=== PATIENT | male | born 1955 | race Caucasian/White ===

== ENCOUNTER 2016-08-07 10:30 | Day surgery (SDC) | payer BC ==
[2016-07-31 11:36] LABS: HEMATOCRIT 45.2 % (37.9-51.0); HEMOGLOBIN 14.6 g/dL (13.5-17.0); HGB HCT DIFFERENCE -1.4; MEAN CORPUSCULAR HEMOGLOBIN 28.8 pg (27.0-33.4); MEAN CORPUSCULAR HGB CONC 32.4 g/dL (32.0-36.0); MEAN CORPUSCULAR VOLUME 89 fl (80-97); RED BLOOD COUNT 5.08 10^6/uL (4.35-5.55); RED CELL DISTRIBUTION WIDTH 14.5 % (11.5-14.0); WHITE BLOOD COUNT 10.7 10^3/uL (4.0-10.5)
[2016-07-31 11:45] LABS: PROTHROMBIN TIME 12.2 SEC (11.4-15.4)
[2016-07-31 11:46] LABS: PARTIAL THROMBOPLASTIN TIME 27.7 SEC (23.5-35.8)
[2016-07-31 12:00] LABS: ANION GAP 11 (5-19); BLOOD UREA NITROGEN 19 mg/dL (7-20); CALCIUM 9.9 mg/dL (8.4-10.2); CARBON DIOXIDE 28 mmol/L (22-30); CHLORIDE 103 mmol/L (98-107); CREATININE RESULT 1.22 mg/dL (0.52-1.25); GLUCOSE 78 mg/dL (75-110); SODIUM 142.4 mmol/L (137-145)
--- NOTE | 2016-07-31 16:24 | EKG REPORT ---
SEVERITY:- NORMAL ECG - SINUS RHYTHM : Confirmed by: Xiang Vega MD 31-Jul-2016 16:23:55
[~2016-08-07 10:30] MED LIST: CEFAZOLIN SODIUM 1 GM in DEXTROSE 5%-WATER 50 ML IV PRN; LACTATED RINGERS 1000 ML IV PRN; LIDOCAINE 0.5% INJ-PF (5 MG/ML) 50 ML SDV SUBCUT PRN; LIDOCAINE 1%/EPINEPHRINE INJ 20 ML VIAL ONE
[2016-08-07] MEDS ORDERED: DEXMEDETOMIDINE INJ 80 MCG/20 ML VIAL IV ONE (11:55)
[2016-08-07] MEDS ORDERED: PROPOFOL INJ 200 MG/20 ML VIAL IV ONE (11:55)
[2016-08-07] MEDS ORDERED: ONDANSETRON HCL INJ/PF 4 MG/2 ML SDV ONE (11:55)
[2016-08-07] MEDS ORDERED: FENTANYL CITRATE INJ/PF 100 MCG/2 ML AMPUL ONE (11:55)
[2016-08-07] MEDS ORDERED: POVIDONE-IODINE 5% OPH PREP SOLN 30 ML ONE (11:56)
[2016-08-07] MEDS ORDERED: MIDAZOLAM 2 MG/2 ML INJ ONE (11:56)
[2016-08-07] MEDS: SODIUM BICARBONATE 8.4% INJ 50 MEQ/50 ML DISP.SYRIN ONE ×2 (13:10→13:23)
[2016-08-07] MEDS ORDERED: MORPHINE SULFATE 10 MG/ML INJ IV PRN (13:29)
[2016-08-07] MEDS ORDERED: PROMETHAZINE HCL INJ 25 MG/1 ML VIAL IV PRN ×2 (13:29)
[2016-08-07] MEDS ORDERED: DIPHENHYDRAMINE HCL 50 MG/ML VIAL IV PRN (13:29)
[2016-08-07] MEDS ORDERED: MEPERIDINE HCL/PF INJ 25 MG/1 ML DISP.SYRIN IV PRN (13:29)
[2016-08-07] MEDS ORDERED: FENTANYL CITRATE INJ/PF 100 MCG/2 ML AMPUL IV PRN ×3 (13:29)
--- NOTE | 2016-08-07 14:01 | Operative Report ---
Operative Report DATE OF SURGERY: 08/07/16 PREOPERATIVE DIAGNOSIS: Biopsy-proven basal cell carcinoma of the left cheek POSTOPERATIVE DIAGNOSIS: Same OPERATION: Excision of basal cell carcinoma of the left cheek with frozen section margin control and reconstruction with a O to S Plasty flap reconstruction SURGEON: VICTORINO RODRIGUEZ ANESTHESIA: LMAC TISSUE REMOVED OR ALTERED: Basal cell carcinoma of the left cheek COMPLICATIONS: None ESTIMATED BLOOD LOSS: minimal PROCEDURE: Patient seen and was marked prior to being brought into the operating room. Patient was brought into the operating room and placed on the operating room table in a supine position. Patient was then prepped with a Betadine scrub and Betadine solution and draped in a sterile and aseptic manner. The area was then marked. 12 O'clock was marked towards the upper cheek 3 O'clock was marked towards earlobe 6:00 was marked towards the middle finger 9:00 was marked towards the mouth The area was then anesthetized with 1% lidocaine with epinephrine and bicarbonate for its anesthetic and hemostatic effects. The area was then excised and marked at 12:00. We had considered a primary closure but this would go against the natural relaxed skin tension lines. A primary closure would be too tight and would have increased chance of dehiscence. This will leave more of a scar so we decided to use a O to S flap reconstruction which would camouflage the scar better and take tension off of the closure so that would be less chances of complications. Then went ahead and outlined the flap and anesthetized it. Then incised the flap and developed a flap maintaining the subdermal plexus. Then we undermined 360 to allow for plate like scarring and minimize trap door deformity. Throughout the case hemostasis was achieved with the bipolar. We then sutured the flap into its new position Using 5-0 Vicryl for the subcutaneous and deep dermis. Skin was closed with a subcuticular stitch using 4-0 PDS with knots being tied on the outside. And 4-0 PDS suture was used for support and placed in the central area of the incision. We then applied tincture benzoin and Steri-Strips followed by a light pressure dressing. Patient was then reversed from anesthesia and taken to the [facility] for recovery. The patient tolerated well. There were no complications. Lesion size was possible 1 cm please see pathology for actual size. Portions of this note may be dictated using [employer] voice recognition software. Occasional variations and spelling and vocabulary could be possible and are unintentional. Additionally, there is a chance that some errors may not be caught or corrected. Please notify the offer of any discrepancies noted or if any statements are unclear. Provider Note Provider Note: Subjective: No complaints Objective: Vital signs stable afebrile No bleeding Dressing intact Assessment and plan: Doing well. Elevate the operative site. Resume medications. Take antibiotics for 1 day Follow-up Full instructions were given to the patient and family and they understand Portions of this note may be dictated using [employer] voice recognition software. Occasional variations and spelling and vocabulary could be possible and are unintentional. Additionally, there is a chance that some errors may not be caught or corrected. Please notify the offer of any discrepancies noted or if any statements are unclear.
--- NOTE | 2016-08-07 14:04 | PDOC DISCHARGE SUMMARY ---
Discharge Summary (SDC) - Discharge Final Diagnosis: Basal cell carcinoma of the left cheek Date of Surgery: 08/07/16 Condition: Good Treatment or Instructions: Leave the top dressing on for 2 days, then removed. Leave the steri-strip tapes on for 5 days, then removal. Then cleaning wound with peroxide and apply Neosporin/bacitracin 3 times per day. Antibiotics for 1 day, then discontinue. Elevate operative area to decrease swelling. Do not strain, or lift heavy objects. Call for excessive bleeding, increased temperature of 101, uncontrolled pain, or excessive nausea or vomiting. You may reach Dr. Courtney through his office at [phone]. In the event of an emergency after hours, then contact Dr. Courtney through [facility]. Return to the office for a postop check on . The time will be scheduled by the nursing staff of [facility] prior to discharge. Please give the patient a copy of their labs and EKG so they can bring this to their PMD. Thank you Portions of this note may be dictated using [employer] voice recognition software. Occasional variations and spelling and vocabulary could be possible and are unintentional. Additionally, there is a chance that some errors may not be caught or corrected. Please notify the offer of any discrepancies noted or if any statements are unclear. Discharge Diet: As Tolerated Discharge Activity: Activity As Tolerated Report the Following to Your Physician Immediately: Shortness of Breath, Nausea , Vomiting, Increase in Pain - Discharge to home
[2016-08-07 15:46] VITALS: BP 130/84
== END 2016-08-07 15:45 | disposition home or self-care (01) ==
LOC: OROUT 10:30
PROVIDERS: ATTEND Plastic Surgery
PROC: 0HB1XZX Excision of Face Skin, External Approach, Diagnostic (ICD-10-PCS; 2016-08-07)
PROC: 0HX1XZZ Transfer Face Skin, External Approach (ICD-10-PCS; principal; 2016-08-07 12:30)
DX: C44.319 Basal cell carcinoma of skin of other parts of face (principal); Z79.82 Long term (current) use of aspirin; Z79.899 Other long term (current) drug therapy; I10 Essential (primary) hypertension; M19.90 Unspecified osteoarthritis, unspecified site; M10.9 Gout, unspecified
CPT/HCPCS: 93005; 36415; 85027; 85610; 85730; 80048; 88305 ×2; 88312 ×2; 88331 ×2; 93010; 14040; J2250; J0690; J3010; J3490 ×4; J2405; J2704; 300

== ENCOUNTER → 2017-06-03 | Outpatient (CLI) | payer BC ==
--- NOTE | 2017-06-03 11:59 | RADIOLOGY REPORT (SQ) ---
EXAM DESCRIPTION: KUB COMPLETED DATE/TIME: 06/03/2017 11:01 am REASON FOR STUDY: CALCULUS OF KIDNEY N20.0 CALCULUS OF KIDNEY COMPARISON: 05/07/2016 NUMBER OF VIEWS: One view. TECHNIQUE: Supine radiographic image of the abdomen acquired. LIMITATIONS: None. FINDINGS: BOWEL GAS PATTERN: Normal bowel gas pattern. No dilated loops. CALCIFICATIONS: Bilateral intrarenal calcifications are present. No ureteral calculus is seen. SOFT TISSUES: No gross mass or suggestion of organomegaly. HARDWARE: None in the abdomen. BONES: No acute fracture. No worrisome bone lesions. OTHER: No other significant finding. IMPRESSION: Bilateral nephrolithiasis with no evidence of a ureteral stone. TECHNICAL DOCUMENTATION: JOB ID: [id number] [employer]- All Rights Reserved
== END ==
LOC: OD 10:46
PROVIDERS: ATTEND Urology
DX: N20.0 Calculus of kidney (principal)
CPT/HCPCS: 74000

== ENCOUNTER 2018-03-30 13:26 | Emergency (ER) | payer BC ==
--- NOTE | 2018-03-30 14:57 | ER Document Report ---
ED Head/Face/Scalp Injury - General Chief Complaint: Laceration Stated Complaint: HEAD INJURY Time Seen by Provider: 03/30/18 14:11 Notes: 62-year-old male presents to ED for laceration to the top of his head. He states he was taken down some broken branches when he came down and hit him on the head. He does have a small laceration 1.75 mL long. TRAVEL OUTSIDE OF THE [place] IN LAST 30 DAYS: No - HPI Patient complains to provider of: Laceration Injury to: Head Location of problem: Head Occurred: Just prior to arrival Where: Home, Outdoors Timing: Still present Context: Laceration Loss consciousness: No loss of consciousness Remembers: Injury, Coming to hospital - Related Data Allergies/Adverse Reactions: No Known Allergies Allergy (Verified 07/30/16 10:05) Past Medical History - General Information source: Patient - Social History Smoking Status: Never Smoker Cigarette use (# per day): No Chew tobacco use (# tins/day): No Smoking Education Provided: No Frequency of alcohol use: None Drug Abuse: None 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 Lives with: Family Family History: Reviewed & Not Pertinent Patient has suicidal ideation: No Patient has homicidal ideation: No Pulmonary Medical History: Reports: Hx Pneumonia - age 42 EENT Medical History: Reports: None Neurological Medical History: Reports: None Endocrine Medical History: Reports: None Renal/ Medical History: Reports: None Malignancy Medical History: Reports None GI Medical History: Reports: None Musculoskeletal Medical History: Reports Hx Arthritis - hands, Reports Hx Musculoskeletal Deformity, Reports Hx Musculoskeletal Trauma Skin Medical History: Reports None Psychiatric Medical History: Reports: None Traumatic Medical History: Reports: Hx Fractures - Multiple states he does not remember the mall Infectious Medical History: Reports: None Past Surgical History: Reports: Hx Orthopedic Surgery - Left knee surgery then total knee replacement., Hx Tonsillectomy - Immunizations Hx Diphtheria, Pertussis, Tetanus Vaccination: Yes Review of Systems - Review of Systems Constitutional: No symptoms reported EENT: No symptoms reported Cardiovascular: No symptoms reported Respiratory: No symptoms reported Gastrointestinal: No symptoms reported Genitourinary: No symptoms reported Male Genitourinary: No symptoms reported Musculoskeletal: No symptoms reported Skin: Other - Laceration to the scalp Hematologic/Lymphatic: No symptoms reported Neurological/Psychological: No symptoms reported Physical Exam - Vital signs Vitals: Temp Pulse Resp BP Pulse Ox 98.1 F 77 14 151/90 H 96 03/30/18 13:32 03/30/18 13:32 03/30/18 13:32 03/30/18 13:32 03/30/18 13:32 Interpretation: Hypertensive - States he has white coat hypertension - General General appearance: Appears well, Alert - HEENT Head: Open wounds - Laceration to the scalp 1.75 cm, Tenderness Eyes: Normal Pupils: PERRL Ears: Normal External canal: Normal Tympanic membrane: Normal Sinus: Normal Nasal: Normal Mouth/Lips: Normal Mucous membranes: Normal Pharynx: Normal Neck: Normal - Respiratory Respiratory status: No respiratory distress Chest status: Nontender Breath sounds: Normal Chest palpation: Normal - Cardiovascular Rhythm: Regular Heart sounds: Normal auscultation Murmur: No - Abdominal Inspection: Normal Distension: No distension Bowel sounds: Normal Tenderness: Nontender Organomegaly: No organomegaly - Back Back: Normal, Nontender - Extremities General upper extremity: Normal inspection, Nontender, Normal color, Normal ROM , Normal temperature General lower extremity: Normal inspection, Nontender, Normal color, Normal ROM , Normal temperature, Normal weight bearing. 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 Patient tolerated procedure well. Patient was given instructions for care of stapled wound. Patient verbalized understanding of instructions. Patient was discharged home. - Vital Signs Vital signs: Temp Pulse Resp BP Pulse Ox 98.4 F 60 20 150/87 H 95 03/30/18 15:00 03/30/18 15:00 03/30/18 15:00 03/30/18 15:00 03/30/18 15:00 Procedures - Laceration/Wound Repair Top of the head scalp Time completed: 15:00 Wound length (cm): 1.7 Wound's Depth, Shape: Superficial Laceration pre-procedure: Sterile PPE donned, Shur-Clens applied Volume Anesthetic (mLs): 0 Wound explored: Contaminated Irrigated w/ Saline (mLs): 75 Wound Repaired With: [place] Number of Sutures: 3 Layer Closure?: No Post-procedure NV exam normal: Yes Complications: No Discharge - Discharge Clinical Impression: Scalp laceration Qualifiers: Encounter type: initial encounter Qualified Code(s): S01.01XA - Laceration without foreign body of scalp, initial encounter Condition: Stable Disposition: HOME, SELF-CARE Additional Instructions: Scalp Laceration A scalp laceration requires little care. Dressings are applied only if severe bleeding or a large flap are present. Usually, once the cut is sutured, you can ignore it. Simply comb the hair over top of it to hide the stitches and go about your usual routine. You can shampoo your hair as needed starting tomorrow. If you need to wear a special hat or protective helmet for work, be careful that it doesn't press on the area. If crusting is bothersome, you can soften the crusts with Polysporin ointment, then shampoo. Infection in a scalp laceration is rare. If any signs of infection occur ( swelling, redness, increasing tenderness, red streaks, tender lumps in the neck on the side of the laceration, or fever), see the doctor immediately. Care of Stapled Wounds Your laceration has been stapled to keep the skin edges aligned during healing. The time of staple removal depends on the nature and location of your cut. Please follow the care instructions the doctor has outlined for you and return for further care, according to the schedule you've been given. A special instrument is needed to remove bianka without injuring your skin further, so don't try to take the bianka out yourself. Keep the wound and dressing clean. Unless you were told otherwise, you may shower daily, blotting the wound dry with a clean, unused towel. At other times, If the dressing gets wet or blood soaked, remove it and blot the wound dry, then reapply a new dressing. Unless you were instructed otherwise, dressings should be changed at least daily. If any signs of infection occur (swelling, redness, increasing tenderness, red streaks, tender lumps in the armpit or groin above the laceration, or fever) , see the doctor immediately. Soap Cleansing Gently wash the wound daily using a mild soap (like Ivory, Phisoderm, Neutrogena). Use warm water, rubbing gently until all debris, ooze, and crusting have been washed from the wound. Allow to dry briefly (about 10 minutes) after cleaning. Repeat this cleansing at least three times a day for the first two days and then once or twice a day. ANTIBIOTIC OINTMENT PROTECTION: Your wounds are such that dressing them is not practical or optional. After cleansing, you should apply a thin coating of antibiotic ointment ( Bacitracin, not Neosporin) to the wounds at least three times daily. This lessens infection risk, and may decrease the amount of scarring. Use a q-tip or dull butter knife, not your finger, to apply this ointment. Any debris or ooze which builds up in the ointment should be gently rubbed off with a sterile gauze pad. Harder crusting may need to be gently scrubbed off with a clean wash cloth with soap and warm water, perhaps applying a warm, wet wash cloth to the wound for ten minutes first. Development of redness, severe itching, or blistering may mean allergy to the ointment. See the doctor. FOLLOW-UP CARE: Please see your primary doctor in __3___ days for an infection check and dressing change. Your bianka should be removed in __5___ days. To facilitate a timely removal of your bianka, you may return to the Emergency Department at [facility]. You do not need to call for an appointment, but the best time to come in for suture removal is early in the morning. If you have been referred to another physician for follow-up care, call that physicians office for an appointment as you were instructed. If you experience a significant change in your laceration, or if you are concerned there may be an infection (swelling, redness, drainage, increasing tenderness, red streaks, tender lumps in the armpit or groin above the laceration, or fever) , return to the Emergency Department immediately re-evaluation. Forms: Elevated Blood Pressure Referrals: KIRK ROSS MD [Primary Care Provider] - Follow up as needed
[2018-03-30 15:46] VITALS: BP 150/87
== END 2018-03-30 15:47 | disposition home or self-care (01) ==
LOC: ER 13:26
PROC: 0HQ0XZZ Repair Scalp Skin, External Approach (ICD-10-PCS; principal; 2018-03-30)
DX: S01.01XA Laceration without foreign body of scalp, initial encounter (principal); X37.0XXA Hurricane, initial encounter; Y93.H9 Activity, other involving exterior property and land maintenance, building and construction; Y92.007 Garden or yard of unspecified non-institutional (private) residence as the place of occurrence of the external cause
CPT/HCPCS: 99282

== ENCOUNTER → 2018-04-18 | Outpatient (CLI) | payer BC ==
[2018-04-18 12:55] LABS: ABSOLUTE BASOPHILS # (AUTO) 0.1 10^3/uL (0.0-0.2); ABSOLUTE EOSINOPHILS # (AUTO) 0.1 10^3/uL (0.0-0.6); ABSOLUTE LYMPHOCYTES (AUTO) 2.9 10^3/uL (0.5-4.7); ABSOLUTE MONOCYTES (AUTO) 0.9 10^3/uL (0.1-1.4); ABSOLUTE NEUT (AUTO) 3.7 10^3/uL (1.7-8.2); EOSINOPHILS % (AUTO) 1.9 % (0-6); HEMATOCRIT 42.4 % (37.9-51.0); HEMOGLOBIN 14.5 g/dL (13.5-17.0); LYMPHOCYTES % (AUTO) 37.7 % (13-45); MEAN CORPUSCULAR HEMOGLOBIN 30.6 pg (27.0-33.4); MEAN CORPUSCULAR HGB CONC 34.3 g/dL (32.0-36.0); MEAN CORPUSCULAR VOLUME 89 fl (80-97); MONOCYTES % (AUTO) 11.7 % (3-13); PLATELET COUNT 249 10^3/uL (150-450); RED BLOOD COUNT 4.75 10^6/uL (4.35-5.55); RED CELL DISTRIBUTION WIDTH 13.7 % (11.5-14.0); SEGMENTED NEUTROPHILS % (AUTO) 47.7 % (42-78); TOTAL CELLS COUNTED % (AUTO) 100 %; WHITE BLOOD COUNT 7.7 10^3/uL (4.0-10.5)
[2018-04-18 12:57] LABS: APPEARANCE,URINE CLEAR; BILIRUBIN,URINE NEGATIVE (NEGATIVE); COLOR,URINE STRAW; GLUCOSE, URINE NEGATIVE (NEGATIVE); KETONES,URINE NEGATIVE (NEGATIVE); LEUKOCYTE ESTERASE,URINE NEGATIVE (NEGATIVE); NITRITE,URINE NEGATIVE (NEGATIVE); PROTEIN,URINE NEGATIVE (NEGATIVE); URINE SPECIFIC GRAVITY 1.003; UROBILINOGEN,URINE NEGATIVE mg/dL (<2.0)
[2018-04-18 13:14] LABS: ALANINE AMINOTRANSFERASE 40 U/L (21-72); ALBUMIN 4.2 g/dL (3.5-5.0); ALKALINE PHOSPHATASE 69 U/L (38-126); ANION GAP 12 (5-19); ASPARTATE AMINO TRANSFERASE 36 U/L (17-59); BILIRUBIN,DIRECT 0.5 mg/dL (0.0-0.4); BILIRUBIN,TOTAL 1.7 mg/dL (0.2-1.3); BLOOD UREA NITROGEN 17 mg/dL (7-20); CALCIUM 9.7 mg/dL (8.4-10.2); CARBON DIOXIDE 26 mmol/L (22-30); CHLORIDE 101 mmol/L (98-107); CHOLESTEROL 150.09 mg/dL (0-200); GLUCOSE 87 mg/dL (75-110); POTASSIUM 4.6 mmol/L (3.6-5.0); SODIUM 138.7 mmol/L (137-145); TOTAL PROTEIN 6.8 g/dL (6.3-8.2); TRIGLYCERIDES 128 mg/dL (<150); URIC ACID 5.6 mg/dL (3.5-8.5)
[2018-04-18 13:29] LABS: DIRECT LDL 76 mg/dL (<100)
== END ==
LOC: OD 12:12
PROVIDERS: ATTEND Internal Medicine Nephrology
DX: E78.5 Hyperlipidemia, unspecified (principal); E78.1 Pure hyperglyceridemia; M10.9 Gout, unspecified; N28.9 Disorder of kidney and ureter, unspecified
CPT/HCPCS: 36415; 80053; 80061; 81001; 84153; 84550; 85025

== ENCOUNTER 2018-05-13 05:46 | Day surgery (SDC) | payer BC ==
[~2018-05-13 05:46] MED LIST changes: +CEFAZOLIN 1 GM/D5W RTU 1 GM/50 ML RTUPB IV PRN; -CEFAZOLIN SODIUM 1 GM in DEXTROSE 5%-WATER 50 ML IV PRN; -LACTATED RINGERS 1000 ML IV PRN; -LIDOCAINE 0.5% INJ-PF (5 MG/ML) 50 ML SDV SUBCUT PRN; -LIDOCAINE 1%/EPINEPHRINE INJ 20 ML VIAL ONE
[2018-05-13] MEDS ORDERED: CEFAZOLIN 1 GM/D5W RTU 1 GM/50 ML RTUPB IV ONE (05:52)
[2018-05-13 06:31] LABS: HEMATOCRIT 43.4 % (37.9-51.0); HEMOGLOBIN 14.9 g/dL (13.5-17.0); MEAN CORPUSCULAR HEMOGLOBIN 30.2 pg (27.0-33.4); MEAN CORPUSCULAR HGB CONC 34.3 g/dL (32.0-36.0); MEAN CORPUSCULAR VOLUME 88 fl (80-97); PLATELET COUNT 228 10^3/uL (150-450); RED BLOOD COUNT 4.92 10^6/uL (4.35-5.55); RED CELL DISTRIBUTION WIDTH 13.6 % (11.5-14.0); WHITE BLOOD COUNT 7.1 10^3/uL (4.0-10.5)
[2018-05-13 06:42] LABS: INTERNATIONAL RATION (INR) 0.87; PROTHROMBIN TIME 12.3 SEC (11.4-15.4)
[2018-05-13 06:43] LABS: PARTIAL THROMBOPLASTIN TIME 29.9 SEC (23.5-35.8)
[2018-05-13] MEDS ORDERED: MIDAZOLAM 2 MG/2 ML INJ ONE (06:44)
[2018-05-13] MEDS ORDERED: FENTANYL CITRATE INJ/PF 100 MCG/2 ML AMPUL ONE (06:44)
[2018-05-13] MEDS ORDERED: PROPOFOL INJ 200 MG/20 ML VIAL IV ONE ×2 (06:45→08:43)
[2018-05-13 06:47] LABS: ANION GAP 13 (5-19); BLOOD UREA NITROGEN 19 mg/dL (7-20); CALCIUM 9.5 mg/dL (8.4-10.2); CARBON DIOXIDE 23 mmol/L (22-30); CHLORIDE 108 mmol/L (98-107); GLUCOSE 93 mg/dL (75-110); POTASSIUM 4.4 mmol/L (3.6-5.0); SODIUM 143.5 mmol/L (137-145)
[2018-05-13] MEDS ORDERED: SODIUM BICARBONATE 8.4% INJ 50 MEQ/50 ML DISP.SYRIN ONE (06:56)
[2018-05-13] MEDS ORDERED: POVIDONE-IODINE 5% OPH PREP SOLN 30 ML ONE (06:57)
[2018-05-13] MEDS ORDERED: LIDOCAINE 1%/EPINEPHRINE INJ 20 ML VIAL ONE (06:57)
[2018-05-13] MEDS ORDERED: PROMETHAZINE HCL INJ 25 MG/1 ML VIAL IV PRN (07:53)
[2018-05-13] MEDS ORDERED: DIPHENHYDRAMINE HCL 50 MG/ML VIAL IV PRN (07:53)
[2018-05-13] MEDS ORDERED: FENTANYL CITRATE INJ/PF 100 MCG/2 ML AMPUL IV PRN ×3 (07:53)
[2018-05-13] MEDS ORDERED: MEPERIDINE HCL/PF INJ 25 MG/1 ML DISP.SYRIN IV PRN (07:53)
--- NOTE | 2018-05-13 09:49 | Operative Report ---
Operative Report DATE OF SURGERY: 05/13/18 PREOPERATIVE DIAGNOSIS: Basal cell carcinoma of the mentum POSTOPERATIVE DIAGNOSIS: Same OPERATION: Excision of basal cell carcinoma from the mentum chin with frozen section margin control and reconstruction with a O to T plasty flap reconstruction SURGEON: VICTORINO RODRIGUEZ ANESTHESIA: LMAC TISSUE REMOVED OR ALTERED: Basal cell carcinoma COMPLICATIONS: None ESTIMATED BLOOD LOSS: Minimal PROCEDURE: Patient seen and was marked prior to being brought into the operating room. Patient was brought into the operating room and placed on the operating room table in a supine position. Patient was then prepped with a Betadine scrub and Betadine solution and draped in a sterile and aseptic manner. The area was then marked. 12 O'clock was marked towards the lower lip 3 O'clock was marked towards the left side 6:00 was marked towards the neck 9:00 was marked towards the right side The area was then anesthetized with 1% lidocaine with epinephrine and bicarbonate for its anesthetic and hemostatic effects. The area was then excised and marked at 12:00. The specimen was sent for frozen section. The results came back that the deep and lateral margins were free. We had considered a primary closure but this would go against the natural relaxed skin tension lines. A primary closure would be too tight and would have increased chance of dehiscence. This will leave more of a scar so we decided to use a O to T flap reconstruction which would camouflage the scar better and take tension off of the closure so that would be less chances of complications. This flap would allow us to close the mental area with a vertical closure which would possibly mimic a cleft type of chin. It would allow us to use the labial mental groove to camouflage the flap and maintain normal vertical height of the lip. Then we went ahead and outlined the flap and anesthetized it. We then incised the flap and developed a flap maintaining the subdermal plexus. Then we undermined 360 to allow for plate like scarring and minimize trap door deformity. Throughout the case hemostasis was achieved with the bipolar. We then sutured the flap into its new position using 5-0 Vicryl for the subcutaneous and deep dermis. The T portion of the flap was adjusted so that we can maintain vertical height of the lip and allow us to camouflage the flap in the labial mental groove. A four-point stitch was used to realign the flaps at the level of the labial mental groove. Horizontal mattress 5-0 Prolene sutures were used to align the rest of the flap along the labial mental groove and along the upper portion of the reconstruction. Skin was closed with a running subcuticular suture stitch using 4-0 PDS with knots being tied on the outside. And 5-0 Prolene suture was used for support and placed in the central area of the incision with horizontal mattress sutures so this would velvet the edges of the wound. We then applied tincture benzoin and Steri-Strips followed by a light pressure dressing. Patient was then reversed from anesthesia and taken to the [facility] for recovery. The patient tolerated well. There were no complications. Lesion size was approximately 1.4 x 1.4 cm please see pathology for actual size. Portions of this note may be dictated using [employer] voice recognition software. Occasional variations and spelling and vocabulary could be possible and are unintentional. Additionally, there is a chance that some errors may not be caught or corrected. Please notify the author of any discrepancies noted or if any statements are unclear. Subjective: No complaints Objective: Vital signs stable afebrile No bleeding Dressing intact Assessment and plan: Doing well. Elevate the operative site. Resume medications. Take antibiotics for 1 day Follow-up Full instructions were given to the patient and family and they understand Portions of this note may be dictated using [employer] voice recognition software. Occasional variations and spelling and vocabulary could be possible and are unintentional. Additionally, there is a chance that some errors may not be caught or corrected. Please notify the offer of any discrepancies noted or if any statements are unclear.
--- NOTE | 2018-05-13 09:52 | Discharge Summary ---
Discharge Summary (SDC) - Discharge Final Diagnosis: Basal cell carcinoma of the mentum chin Date of Surgery: 05/13/18 Condition: Good Treatment or Instructions: Leave the top dressing on for 2 days, then removed. Leave the steri-strip tapes on for 5 days, then removal. Then cleaning wound with peroxide and apply Neosporin/bacitracin 3 times per day. Antibiotics for 1 day, then discontinue. Elevate operative area to decrease swelling. Do not strain, or lift heavy objects. Call for excessive bleeding, increased temperature of 101, uncontrolled pain, or excessive nausea or vomiting. You may reach Dr. Courtney through his office at [phone]. In the event of an emergency after hours, then contact Dr. Courtney through [facility]. Return to the office for a postop check on . The time will be scheduled by the nursing staff of [facility] prior to discharge. Please give the patient a copy of their labs and EKG so they can bring this to their PMD. Thank you Portions of this note may be dictated using [employer] voice recognition software. Occasional variations and spelling and vocabulary could be possible and are unintentional. Additionally, there is a chance that some errors may not be caught or corrected. Please notify the offer of any discrepancies noted or if any statements are unclear. Referrals: KRISTOFER ÁLVAREZ MD [Primary Care Provider] - Discharge Diet: Other (Comments) - Please eat a soft diet for the next several days. Do not open the mouth wide. Keep the head elevated. No bending or straining. Report the Following to Your Physician Immediately: Unusual Bleeding - Keep head elevated. No bending or straining. Eat a soft diet. Do not open the mouth wide.
--- NOTE | 2018-05-13 10:36 | EKG REPORT ---
SEVERITY:- NORMAL ECG - SINUS RHYTHM : Confirmed by: Debra Mercer MD 13-May-2018 10:35:54
[2018-05-13 11:18] VITALS: BP 126/87
== END 2018-05-13 11:19 | disposition home or self-care (01) ==
LOC: OROUT 05:46
PROVIDERS: ATTEND Plastic Surgery
DX: C44.319 Basal cell carcinoma of skin of other parts of face (principal); M19.90 Unspecified osteoarthritis, unspecified site; I10 Essential (primary) hypertension; M10.9 Gout, unspecified; Z96.652 Presence of left artificial knee joint; Z79.82 Long term (current) use of aspirin; Z79.899 Other long term (current) drug therapy; Z85.828 Personal history of other malignant neoplasm of skin; Z01.818 Encounter for other preprocedural examination
CPT/HCPCS: 36415; 85027; 85610; 85730; 80048; 88305 ×2; 88331 ×2; 93005; 93010; 14040; J2250; J0690; J3010; J3490 ×3; J2704; 300

== ENCOUNTER → 2020-02-19 | Outpatient (CLI) | payer BC ==
--- NOTE | 2020-02-19 14:35 | RADIOLOGY REPORT (SQ) ---
EXAM DESCRIPTION: U/S RETROPERITON (RENAL/AORTA) IMAGES COMPLETED DATE/TIME: 02/19/2020 2:17 pm REASON FOR STUDY: RENAL IMPAIRMENT (N28.9) N28.9 DISORDER OF KIDNEY AND URETER, UNSPECIFIED COMPARISON: None. TECHNIQUE: Dynamic and static grayscale images acquired of the kidneys and bladder and recorded on P ACS. Additional selected color Doppler and spectral images recorded. LIMITATIONS: None. FINDINGS: RIGHT KIDNEY: The right kidney measures 12 cm in length. Mild increased echogenicity. Small cysts. No hydronephrosis. No calcifications. LEFT KIDNEY: The left kidney measures 12.4 cm in length. Mild increased echogenicity. No solid o r suspicious masses. No hydronephrosis. No calcifications. BLADDER: No masses. OTHER FINDINGS: No other significant finding. IMPRESSION: Normal renal size. No obvious cortical thinning. Mild increased echogenicity bilateral ly. TECHNICAL DOCUMENTATION: JOB ID: [id number] [employer]- All Rights Reserved Reading location - IP/workstation name: [email or web address]
== END ==
LOC: RAD 13:51
PROVIDERS: ATTEND Internal Medicine Nephrology
DX: N28.1 Cyst of kidney, acquired (principal)
CPT/HCPCS: 76770

== ENCOUNTER → 2020-08-13 | Outpatient (CLI) | payer BC ==
[2020-08-13 13:48] LABS: URINE CREATININE 57.5 mg/dL (22-328)
[2020-08-13 13:50] LABS: CREAT CLEARANCE 96 mL/min (87-140); CREATININE 1.25 mg/dL (0.52-1.25)
== END ==
LOC: OD 10:28
PROVIDERS: ATTEND Internal Medicine Nephrology
DX: N28.9 Disorder of kidney and ureter, unspecified (principal)
CPT/HCPCS: 36415; 82565; 82575